=== PATIENT | female | born 2000 | race Asian ===

== ENCOUNTER 2019-02-10 13:32 | Emergency (ER) | payer MEDICAID ==
[~2019-02-10] VITALS: Ht 162.6 cm; Wt 53.1 kg
[2019-02-10] MEDS ORDERED: SODIUM CHLORIDE FLUSH 10ML SYR IVF ONE (14:00)
[2019-02-10 14:34] LABS: BASOPHILS # (AUTO) 0.03 x10^3/uL (0-0.3); BASOPHILS % (AUTO) 1 % (0-1); EOSINOPHILS # (AUTO) 0.03 x10^3/uL (0-0.8); EOSINOPHILS % (AUTO) 1 % (1-7); LYMPHOCYTES # (AUTO) 2.07 x10^3/uL (1-6.1); LYMPHOCYTES % (AUTO) 38 % (22-44); MD NO; MEAN CORPUSCULAR HEMOGLOBIN 29.9 pg (27.0-34.8); MEAN CORPUSCULAR HGB CONC 33.1 g/dL (32.4-35.8); MEAN CORPUSCULAR VOLUME 90.4 fL (80-100); MONOCYTES # (AUTO) 0.39 x10^3/uL (0-1.4); MONOCYTES % (AUTO) 7 % (2-9); NEUTROPHILS # (AUTO) 2.92 x10^3/uL (1.8-8.0); NEUTROPHILS % (AUTO) 54 % (42-75); PLATELET COUNT 283 x10^3/uL (130-400); RED CELL DISTRIBUTION WIDTH 13.2 % (9.6-15.2)
[2019-02-10 14:40] LABS: ALBUMIN 3.9 g/dL (3.4-5.0); ANION GAP 4 mmol/L (5-15); CALCIUM 8.7 mg/dL (8.5-10.1); CHLORIDE 110 mmol/L (98-107); CREATININE 0.75 mg/dL (0.55-1.02)
--- NOTE | 2019-02-10 15:10 | NUR ---
RISK MANAGER: PT AMBULATORY TO ED ROOM 31 FROM [facility] IN NAD AT THIS TIME
--- NOTE | 2019-02-10 15:11 | NUR ---
PT ROOMED AT THIS TIME, ASSUMED CARE OF PT
[2019-02-10] MEDS ORDERED: KETOROLAC 30 MG/1 ML IM ONE (15:30)
--- NOTE | 2019-02-10 15:33 | NUR ---
UPDATED PT ON POC. ADVISED OF NEED FOR URINE SAMPLE. PT AMBULATED TO RESTROOM AND SAMPLE OBTAINED. MD AT BEDSIDE FOR ASSESSMENT. PT SHOWS NO SIGNS OF DISTRESS AT THIS TIME. WILL CONTINUE TO MONITOR.
--- NOTE | 2019-02-10 15:39 | NUR ---
URINE SENT TO LAB FOR ANALYSIS
[2019-02-10] MEDS ORDERED: KETOROLAC 30 MG/1 ML ONE (15:41)
[2019-02-10 15:50] LABS: CULTURE INDICATED? YES; MICROSCOPIC INDICATED
[2019-02-10 16:20] VITALS: BP 109/66
--- NOTE | 2019-02-10 16:38 | NUR ---
PT INDICATING THAT HEADACHE HAS IMPROVED AT THIS TIME
== END 2019-02-10 17:27 | disposition home or self-care (01) ==
LOC: ED 17:11
DX: R51 Headache (principal); N30.00 Acute cystitis without hematuria
CPT/HCPCS: 36415; 80048; 81001; 82040; 84703; 85025; 87086; 96372; 99283; J1885

== ENCOUNTER 2020-01-07 08:07 | Outpatient (CLI) | payer OTHER ==
[2020-01-07] MEDS ORDERED: None at this Time (09:20)
== END 2020-01-07 23:59 | disposition home or self-care (01) ==
LOC: STAR 08:07
PROVIDERS: ATTEND Orthopaedic Surgery
DX: Z02.9 Encounter for administrative examinations, unspecified (principal)

== ENCOUNTER 2020-01-11 10:46 | Day surgery (SDC) | payer OTHER ==
[2020-01-07 09:12] VITALS: BP 113/78
[~2020-01-11] VITALS: Ht 162.6 cm; Wt 51.4 kg
[~2020-01-11 10:46] MED LIST: None at this Time
[2020-01-11] MEDS ORDERED: LACTATED RINGERS 1,000 ML IV SCH (11:02)
[2020-01-11 11:16] LABS: HCG UR SG 1.032 (1.003-1.030)
[2020-01-11] MEDS ORDERED: CHLORHEXIDINE 15 ML UDC MM ONE (11:30)
[2020-01-11] MEDS ORDERED: MIDAZOLAM 1 MG/ML, 2ML ONE (12:40)
[2020-01-11] MEDS ORDERED: FENTANYL PF 250 MCG/5ML ONE (12:40)
[2020-01-11] MEDS ORDERED: ACETAMINOPHEN 500 MG TABLET PO ONE (13:00)
[2020-01-11] MEDS ORDERED: LIDOCAINE/PF 1%-EPI 1:200K, 30 ML ONE (13:13)
[2020-01-11] MEDS ORDERED: ROPIvacaine/PF 0.5%, 30 ML ONE (13:13)
[2020-01-11] MEDS ORDERED: DIAZEPAM 5 MG TABLET PO ONE (13:30)
[2020-01-11] MEDS ORDERED: OXYcodone IR 5MG TABLET PO ONE (13:30)
[2020-01-11] MEDS ORDERED: FAMOTIDINE 20 MG TABLET PO ONE (13:30)
[2020-01-11] MEDS ORDERED: PROPOFOL 10 MG/ML, 20ML ONE ×2 (14:07)
[2020-01-11] MEDS ORDERED: CEFAZOLIN 1,000 MG ONE ×2 (14:07)
[2020-01-11] MEDS ORDERED: DEXAMETHASONE 4 MG/ML, 1ML ONE ×2 (14:08)
[2020-01-11] MEDS ORDERED: ONDANSETRON 2MG/ML, 2ML ONE (16:06)
[2020-01-11] MEDS ORDERED: KETOROLAC 30 MG/1 ML ONE (16:06)
[2020-01-11] MEDS ORDERED: HYDROmorphone 1 MG/ML, 1ML INJ ONE (17:12)
[2020-01-11] MEDS ORDERED: FENTANYL PF 100 MCG/2ML ONE (17:12)
[2020-01-11] MEDS ORDERED: ACETAMINOPHEN 650 MG/20.3 ML UDC ONE (17:12)
[2020-01-11] MEDS ORDERED: OXYcodone 5 MG/5 ML ORAL.SOL UDC ONE (17:12)
[2020-01-11] MEDS ORDERED: PROMETHAZINE 25 MG/ML, 1ML IVPush PRN (17:30)
[2020-01-11] MEDS ORDERED: morphine SULFATE 10 MG/ML, 1ML IVPush PRN (17:30)
[2020-01-11] MEDS ORDERED: FENTANYL PF 100 MCG/2ML IV PRN (17:30)
[2020-01-11] MEDS ORDERED: ACETAMINOPHEN 325 MG TABLET PO PRN ×2 (17:30→20:00)
[2020-01-11] MEDS ORDERED: OXYcodone 5 MG/5 ML ORAL.SOL UDC PO PRN (17:30)
[2020-01-11] MEDS ORDERED: HYDROmorphone 1 MG/ML, 1ML INJ IVPush PRN (17:30)
[2020-01-11] MEDS ORDERED: ONDANSETRON 2MG/ML, 2ML IVPush PRN (17:30)
[2020-01-11] MEDS ORDERED: MEPERIDINE/PF 25MG/0.5ML IVPush PRN (17:30)
[2020-01-11 18:20] VITALS: BP 111/66
[2020-01-11] MEDS ORDERED: PROMETHAZINE 25 MG/ML, 1ML IM PRN (20:00)
[2020-01-11] MEDS ORDERED: morphine SULFATE 10 MG/ML, 1ML IV PRN (20:00)
[2020-01-11] MEDS ORDERED: ONDANSETRON 2MG/ML, 2ML IV PRN (20:00)
[2020-01-11] MEDS ORDERED: OXYcodone/APAP 5/325MG TABLET PO PRN (20:00)
[2020-01-12] MEDS ORDERED: KETOROLAC 30 MG/1 ML IV SCH (01:00)
== END 2020-01-11 20:50 | disposition home or self-care (01) ==
LOC: OUT 10:46 → 4NE 18:14 → OUT 20:50
PROVIDERS: ATTEND Orthopaedic Surgery
DX: M21.162 Varus deformity, not elsewhere classified, left knee (principal); Z11.59 Encounter for screening for other viral diseases; Z72.89 Other problems related to lifestyle
CPT/HCPCS: 27457; 64447; 73564; 76942; 81025; C1713; C1763; C1776; J0690; J1100; J1170; J1885; J2250; J2405; J2704; J2795; J3010; J3490; J7120; U0001; 76000; G0378